=== PATIENT | female | born 1970 | race Caucasian/White ===

== ENCOUNTER 2023-09-03 17:58 | Outpatient (RCR) | payer BC, SELFPAY | END 2023-09-03 23:59 | disposition home or self-care (01) | LOC: RPT 17:58 | PROVIDERS: ATTENDING PHYSICIAN Nurse Practitioner | DX: M25.512 Pain in left shoulder (principal); Z73.6 Limitation of activities due to disability; M65.222 Calcific tendinitis, left upper arm | CPT/HCPCS: 97110; 97140; 97162 ==

== ENCOUNTER → 2023-10-22 16:22 | Outpatient (REF) | payer BC, SELFPAY | LOC: HWRAD 16:22 | PROVIDERS: ATTENDING PHYSICIAN Internal Medicine; FAMILY PHYSICIAN Nurse Practitioner | DX: M25.562 Pain in left knee (principal) | CPT/HCPCS: 73564 ==

== ENCOUNTER 2023-11-10 18:03 | Outpatient (RCR) | payer BC, SELFPAY | END 2023-11-10 23:59 | disposition home or self-care (01) | LOC: RPT 18:03 | PROVIDERS: ATTENDING PHYSICIAN Internal Medicine; FAMILY PHYSICIAN Nurse Practitioner | DX: M25.562 Pain in left knee (principal); Z73.6 Limitation of activities due to disability | CPT/HCPCS: 97110; 97162 ==

== ENCOUNTER 2023-12-24 16:19 | Outpatient (RCR) | payer BC, SELFPAY | END 2023-12-24 23:59 | disposition home or self-care (01) | LOC: RPT 16:19 | PROVIDERS: ATTENDING PHYSICIAN Internal Medicine; FAMILY PHYSICIAN Nurse Practitioner | DX: M25.562 Pain in left knee (principal); Z73.6 Limitation of activities due to disability | CPT/HCPCS: 97110; 97140 ==

== ENCOUNTER → 2024-01-24 07:13 | Outpatient (REF) | payer BC, SELFPAY | LOC: MRI 3T 07:13 | PROVIDERS: ATTENDING PHYSICIAN Physician Assistant Surgical; FAMILY PHYSICIAN Nurse Practitioner | DX: M23.92 Unspecified internal derangement of left knee (principal); M25.562 Pain in left knee | CPT/HCPCS: 73721 ==

== ENCOUNTER → 2024-03-31 16:52 | Outpatient (REF) | payer BC, SELFPAY | LOC: WDC 16:52 | PROVIDERS: ATTENDING PHYSICIAN Obstetrics & Gynecology Gynecology; FAMILY PHYSICIAN Nurse Practitioner | DX: Z12.31 Encounter for screening mammogram for malignant neoplasm of breast (principal) | CPT/HCPCS: 77063; 77067 ==

== ENCOUNTER → 2024-04-27 07:13 | Outpatient (REF) | payer BC, SELFPAY ==
[2024-04-27 08:11] LABS: % Basophils 0.9 % (0-2); % Eosinophils 3.7 % (0-6); % Immature Granulocytes 0.2 % (0-0.5); % Lymphocytes 37.2 % (20.5-51.1); % Monocytes 7.4 % (1.7-9.3); % Neutrophils 50.6 % (42.2-75.2); Absolute Basophils 0.1 10^3/uL (0-0.2); Absolute Eosinophils 0.2 10^3/uL (0-0.7); Absolute Lymphocytes 2.1 10^3/uL (1.2-3.4); Absolute Monocytes 0.4 10^3/uL (0.1-0.6); Absolute Neutrophils 2.9 10^3/uL (1.4-6.5); Hematocrit 45.3 % (37.0-47.0); Hemoglobin 16.2 g/dL (12.0-16.0); Mean Corp Hgb Conc. 35.8 g/dL (33.0-37.0); Mean Corpuscular Hgb 31.8 pg (27.0-31.0); Mean Platelet Volume 9.2 fL (7.4-10.4); Nucleated Red Blood Cells % 0 %; Platelet Count 204 10^3/uL (130-400); Red Blood Cell Count 5.09 10^6/uL (4.20-5.40); White Blood Cell Count 5.7 10^3/uL (4.8-10.8)
[2024-04-27 08:44] LABS: ALT (SGPT) 38 U/L (0-35); AST (SGOT) 39 U/L (14-36); Albumin 4.5 g/dl (3.5-5.0); Alkaline Phosphatase 95 U/L (38-126); Blood Urea Nitrogen 12 mg/dl (7-17); Calcium 9.9 mg/dl (8.4-10.2); Carbon Dioxide 27 mmol/L (22-30); Chloride 102 mmol/L (98-107); Glucose 102 mg/dl (70-99); HDL Cholesterol 61 mg/dl; LDL Cholesterol, Calculated 156 mg/dl; Potassium 4.4 mmol/L (3.5-5.1); Sodium 142 mmol/L (135-145); Total Bilirubin 0.6 mg/dl (0.2-1.3); Total Cholesterol 246 mg/dl (50-199); Triglyceride 148 mg/dl (10-149); Very Low Density Lipoprotein 29 mg/dl (0-30); eGFR > 60.00
[2024-04-27 09:11] LABS: TSH 3.76 uIU/ml (0.47-4.68)
== END ==
LOC: REG 07:13
PROVIDERS: ATTENDING PHYSICIAN Nurse Practitioner
DX: Z00.01 Encounter for general adult medical examination with abnormal findings (principal); E03.9 Hypothyroidism, unspecified
CPT/HCPCS: 36415; 80053; 80061; 84443; 85025

== ENCOUNTER → 2024-05-27 06:48 | Outpatient (REF) | payer BC, SELFPAY | LOC: SDSPAT 06:48 | PROVIDERS: ATTENDING PHYSICIAN Specialist; FAMILY PHYSICIAN Internal Medicine | DX: Z12.31 Encounter for screening mammogram for malignant neoplasm of breast (principal) | CPT/HCPCS: 93005 ==

== ENCOUNTER 2024-06-04 06:17 | Day surgery (SDC) | payer BC, SELFPAY ==
[2024-05-27 07:46] VITALS: BMI 27.9
[2024-06-04] VITALS (8 sets, daily range): BP systolic 108–143; BP diastolic 73–91; BMI 27.9
[2024-06-04] MEDS: CELEBREX 200 MG PO (10:34)
[2024-06-04] MEDS: TYLENOL 1000 MG PO (10:34)
[2024-06-04] MEDS: ROXICODONE 5 MG PO (14:10)
== END 2024-06-04 14:40 | disposition home or self-care (01) ==
LOC: SDS 06:17
PROVIDERS: ATTENDING PHYSICIAN Specialist; FAMILY PHYSICIAN Internal Medicine
DX: S83.242A Other tear of medial meniscus, current injury, left knee, initial encounter (principal); X58.XXXA Exposure to other specified factors, initial encounter; M22.42 Chondromalacia patellae, left knee
CPT/HCPCS: 29881

== ENCOUNTER 2024-07-07 13:14 | Outpatient (RCR) | payer BC, SELFPAY | END 2024-07-07 23:59 | disposition home or self-care (01) | LOC: RPT 13:14 | PROVIDERS: ATTENDING PHYSICIAN Physician Assistant Surgical; FAMILY PHYSICIAN Nurse Practitioner | DX: M54.16 Radiculopathy, lumbar region (principal); Z47.89 Encounter for other orthopedic aftercare (principal); Z73.6 Limitation of activities due to disability; M25.562 Pain in left knee; Z98.890 Other specified postprocedural states; M62.81 Muscle weakness (generalized); R26.89 Other abnormalities of gait and mobility | CPT/HCPCS: 97110; 97140; 97162 ==

== ENCOUNTER 2024-07-28 16:40 | Outpatient (RCR) | payer BC, SELFPAY | END 2024-07-28 23:59 | disposition home or self-care (01) | LOC: RPT 16:40 | PROVIDERS: ATTENDING PHYSICIAN Physician Assistant Surgical; FAMILY PHYSICIAN Nurse Practitioner | DX: Z47.89 Encounter for other orthopedic aftercare (principal); M54.16 Radiculopathy, lumbar region; Z73.6 Limitation of activities due to disability; M25.562 Pain in left knee; M62.81 Muscle weakness (generalized); R26.89 Other abnormalities of gait and mobility; Z98.890 Other specified postprocedural states | CPT/HCPCS: 97110; 97140 ==

== ENCOUNTER → 2024-08-22 12:44 | Outpatient (REF) | payer BC, SELFPAY | LOC: MRI 3T 12:44 | PROVIDERS: ATTENDING PHYSICIAN Physician Assistant Surgical; FAMILY PHYSICIAN Internal Medicine | DX: M54.16 Radiculopathy, lumbar region (principal); M54.6 Pain in thoracic spine | CPT/HCPCS: 72146; 72148 ==

== ENCOUNTER 2024-10-06 16:12 | Outpatient (RCR) | payer BC, SELFPAY | END 2024-10-06 23:59 | disposition home or self-care (01) | LOC: RPT 16:12 | PROVIDERS: ATTENDING PHYSICIAN Physician Assistant Surgical; FAMILY PHYSICIAN Nurse Practitioner | DX: M54.16 Radiculopathy, lumbar region (principal); Z47.89 Encounter for other orthopedic aftercare; Z73.6 Limitation of activities due to disability; M25.562 Pain in left knee; M62.81 Muscle weakness (generalized); R26.89 Other abnormalities of gait and mobility; Z98.890 Other specified postprocedural states | CPT/HCPCS: 97110; 97140 ==

== ENCOUNTER 2024-11-03 16:30 | Outpatient (RCR) | payer BC, SELFPAY | END 2024-11-03 23:59 | disposition home or self-care (01) | LOC: RPT 16:30 | PROVIDERS: ATTENDING PHYSICIAN Physician Assistant Surgical; FAMILY PHYSICIAN Nurse Practitioner | DX: M54.16 Radiculopathy, lumbar region (principal); Z47.89 Encounter for other orthopedic aftercare; Z73.6 Limitation of activities due to disability; M25.562 Pain in left knee; M62.81 Muscle weakness (generalized); R26.89 Other abnormalities of gait and mobility; Z98.890 Other specified postprocedural states | CPT/HCPCS: 97110; 97140 ==

== ENCOUNTER 2024-12-01 16:14 | Outpatient (RCR) | payer BC, SELFPAY | END 2024-12-01 23:59 | disposition home or self-care (01) | LOC: RPT 16:14 | PROVIDERS: ATTENDING PHYSICIAN Physician Assistant Surgical; FAMILY PHYSICIAN Nurse Practitioner | DX: Z47.89 Encounter for other orthopedic aftercare (principal); M54.16 Radiculopathy, lumbar region; M25.562 Pain in left knee; M62.81 Muscle weakness (generalized); R26.89 Other abnormalities of gait and mobility; Z98.890 Other specified postprocedural states; Z73.6 Limitation of activities due to disability | CPT/HCPCS: 97110; 97140 ==

== ENCOUNTER → 2025-01-01 08:20 | Outpatient (REF) | payer BC, SELFPAY ==
[2025-01-01 09:31] LABS: ALT (SGPT) 51 U/L (0-35); AST (SGOT) 45 U/L (14-36); Alkaline Phosphatase 72 U/L (38-126); Blood Urea Nitrogen 11 mg/dl (7-17); Calcium 10.3 mg/dl (8.4-10.2); Carbon Dioxide 26 mmol/L (22-30); Chloride 104 mmol/L (98-107); Glucose 99 mg/dl (70-99); Sodium 141 mmol/L (135-145); Total Bilirubin 1.1 mg/dl (0.2-1.3); Total Protein 8.1 g/dl (6.3-8.2); eGFR > 60.00
[2025-01-01 09:45] LABS: Progesterone 0.38 ng/ml
[2025-01-01 09:59] LABS: TSH Reflex To Free T4 3.85 uIU/ml (0.47-4.68)
[2025-01-01 15:00] LABS: Glycohemoglobin (HgbA1c) 5.2 % (4.0-5.6)
[2025-01-02 21:46] LABS: Thyroid Peroxidase Ab (TPO) 49.3 IU/mL (0.0-9.0)
[2025-01-02 23:01] LABS: DHEA Sulfate 35 ug/dL (35-256)
== END ==
LOC: REG 08:20
PROVIDERS: ATTENDING PHYSICIAN Nurse Practitioner Family; FAMILY PHYSICIAN Internal Medicine
DX: E03.9 Hypothyroidism, unspecified (principal); R63.5 Abnormal weight gain
CPT/HCPCS: 36415; 80053; 82627; 83036; 83498; 84144; 84432; 84443; 86376; 86800

== ENCOUNTER → 2025-01-04 07:35 | Outpatient (REF) | payer BC, SELFPAY | LOC: REG 07:35 | PROVIDERS: ATTENDING PHYSICIAN Nurse Practitioner Family | DX: E03.9 Hypothyroidism, unspecified (principal); R63.5 Abnormal weight gain | CPT/HCPCS: 81050; 82530 ==

== ENCOUNTER → 2025-04-04 16:29 | Outpatient (REF) | payer BC, SELFPAY | LOC: WDC 16:29 | PROVIDERS: ATTENDING PHYSICIAN Obstetrics & Gynecology Gynecology; FAMILY PHYSICIAN Internal Medicine | DX: Z12.31 Encounter for screening mammogram for malignant neoplasm of breast (principal) | CPT/HCPCS: 77063; 77067 ==

== ENCOUNTER → 2025-05-03 07:21 | Outpatient (REF) | payer BC, SELFPAY ==
[2025-05-03 09:30] LABS: Hematocrit 42.8 % (37.0-47.0); Hemoglobin 14.8 g/dL (12.0-16.0); Mean Corp Hgb Conc. 34.6 g/dL (33.0-37.0); Mean Corpuscular Volume 87.2 fL (81.0-99.0); Nucleated Red Blood Cells % 0 %; Platelet Count 179 10^3/uL (130-400); Red Cell Dist. Width 12.0 % (11.5-14.5)
[2025-05-03 10:10] LABS: ALT (SGPT) 34 U/L (0-35); AST (SGOT) 32 U/L (14-36); Albumin 4.6 g/dl (3.5-5.0); Alkaline Phosphatase 80 U/L (38-126); Blood Urea Nitrogen 12 mg/dl (7-17); Calcium 9.8 mg/dl (8.4-10.2); Carbon Dioxide 28 mmol/L (22-30); Chloride 103 mmol/L (98-107); Glucose 94 mg/dl (70-99); HDL Cholesterol 56 mg/dl; LDL Cholesterol, Calculated 144 mg/dl; Potassium 4.5 mmol/L (3.5-5.1); Sodium 139 mmol/L (135-145); Total Protein 7.1 g/dl (6.3-8.2); Very Low Density Lipoprotein 27 mg/dl (0-30); eGFR > 60.00
== END ==
LOC: REG 07:21
PROVIDERS: ATTENDING PHYSICIAN Internal Medicine
DX: Z00.00 Encounter for general adult medical examination without abnormal findings (principal); Z13.31 Encounter for screening for depression; E03.9 Hypothyroidism, unspecified
CPT/HCPCS: 36415; 80053; 80061; 84443; 85025